=== PATIENT | male | born 1985 | race Caucasian/White ===

== ENCOUNTER → 2021-06-01 16:44 | Outpatient (CLI) | payer OTHER, SELFPAY ==
--- NOTE | 2021-06-01 17:30 | MRI_ITS ---
STUDY: MRI RIGHT KNEE REASON FOR EXAM: Male, 35 years old. KNEE POPPED AT WORK ON 05/15/21. XRAY SHOWED INTERCONDYLAR NOTCH OSSEOUS FRAGMENT AND RAIOLOGIST SUGGESTED A MRI OF KNEE. TECHNIQUE: Standardized fat and water weighted pulse sequences were obtained in all 3 orthogonal planes. COMPARISON: Right knee x-ray dated May 15, 2021 FINDINGS: A large 1.86 cm osteochondral defect is present in the anterior central and medial aspects of the medial femoral condyle with full-thickness loss of cartilage over most of the regions, delamination, fragmentation with fluid seen between the inaja bone and the displaced osteocartilaginous fragment measuring 1.17 cm in diameter. Subchondral cystic changes and moderate reactive signal is seen in the medial femoral condyle lesion. Normal medial meniscus. Normal remaining hyaline cartilage of the medial femorotibial compartment. Normal medial tibial plateau. Normal medial collateral ligamentous complex (MCL). Normal distal semimembranosus, gracilis and semitendinosus tendons. Normal lateral meniscus. Normal hyaline cartilage of the lateral femorotibial compartment. Normal lateral femoral condyle and tibial plateau. Normal proximal tibiofibular articulation. Normal lateral collateral (fibular) ligament. Normal popliteus tendon. Normal biceps femoris tendon. Normal anterior cruciate ligament (ACL). Normal posterior cruciate ligament (PCL). Normal congruent patellofemoral articulation. Normal hyaline cartilage of the patellofemoral compartment. Normal medial and lateral patellar retinaculum. Normal quadriceps tendon. Normal patellar tendon. Normal Hoffa''s fat pad. A small joint effusion is present. The soft tissues are unremarkable. The otherwise visualized osseous structures are unremarkable. MRI/Lower Ext Joint Only (Routine) IMPRESSION: 1. A large 1.86 cm osteochondral defect is present in the anterior central and medial aspects of the medial femoral condyle with full-thickness loss of cartilage over most of the regions, delamination, fragmentation with fluid seen between the inaja bone and the displaced osteocartilaginous fragment measuring 1.17 cm in diameter. Subchondral cystic changes and moderate reactive signal is seen in the medial femoral condyle lesion. Electronically Signed: German Fuentes MD at 22:19 EST , Service support ,
== END ==
PROVIDERS: Referring Provider Physician Assistant Surgical; Visit Provider Physician Assistant Surgical
DX: S86.911A Strain of unspecified muscle(s) and tendon(s) at lower leg level, right leg, initial encounter (principal); X58.XXXA Exposure to other specified factors, initial encounter; Y93.9 Activity, unspecified; Y92.9 Unspecified place or not applicable; Y99.9 Unspecified external cause status
CPT/HCPCS: 73721